=== PATIENT | female | born 1955 | race Two or more races ===

== ENCOUNTER 2018-11-06 14:48 | Emergency (ER) | payer OTHER ==
[~2018-11-06] VITALS: Ht 162.6 cm; Wt 77.1 kg
[2018-11-06] MEDS ORDERED: SYNTHROID100 MCG (14:58)
[2018-11-06] MEDS ORDERED: OMEPRAZOLE20 MG (15:00)
[2018-11-06] MEDS ORDERED: INTESTINEX680 M1 (15:00)
[2018-11-06] MEDS ORDERED: METRONIDAZOLE250 MG (15:00)
[2018-11-06] MEDS ORDERED: LEVSIN/SL0.125 MG (15:01)
== END 2018-11-06 20:54 | disposition home or self-care (01) ==
LOC: ER 14:48
DX: K52.9 Noninfective gastroenteritis and colitis, unspecified (principal); E86.0 Dehydration; R10.84 Generalized abdominal pain

== ENCOUNTER 2018-12-22 15:25 | Emergency (ER) | payer OTHER ==
[~2018-12-22] VITALS: Ht 162.6 cm; Wt 76.7 kg
[~2018-12-22 15:25] MED LIST: INTESTINEX680 M1; LEVSIN/SL0.125 MG; METRONIDAZOLE250 MG; OMEPRAZOLE20 MG; SYNTHROID100 MCG
== END 2018-12-22 19:08 | disposition home or self-care (01) ==
LOC: ER 15:25
DX: M54.2 Cervicalgia (principal); M25.552 Pain in left hip; M79.601 Pain in right arm; R10.84 Generalized abdominal pain

== ENCOUNTER 2019-01-06 10:47 | Emergency (ER) | payer OTHER ==
[~2019-01-06] VITALS: Ht 162.6 cm; Wt 72.6 kg
[2019-01-06] MEDS ORDERED: SYNTHROID88 MCG (11:39)
== END 2019-01-06 15:52 | disposition home or self-care (01) ==
LOC: ER 10:47
DX: K29.70 Gastritis, unspecified, without bleeding (principal)

== ENCOUNTER 2019-06-09 13:08 | Emergency (ER) | payer OTHER ==
[~2019-06-09] VITALS: Ht 160 cm; Wt 74.4 kg
[~2019-06-09 13:08] MED LIST changes: +SYNTHROID88 MCG
[2019-06-09] MEDS ORDERED: SYNTHROID100 MCG (13:27)
[2019-06-09] MEDS ORDERED: TUSNEL LIQUID178 ML PO (16:02)
== END 2019-06-09 16:17 | disposition home or self-care (01) ==
LOC: ER 13:08
DX: R53.81 Other malaise (principal)

== ENCOUNTER 2019-08-17 09:02 | Emergency (ER) | payer OTHER ==
[~2019-08-17] VITALS: Ht 162.6 cm; Wt 74.4 kg
[~2019-08-17 09:02] MED LIST changes: +TUSNEL LIQUID178 ML PO
[2019-08-17] MEDS ORDERED: BACTRIM DS TAB1 EACH PO (11:56)
== END 2019-08-17 12:27 | disposition home or self-care (01) ==
LOC: ER 09:02
DX: N39.0 Urinary tract infection, site not specified (principal)

== ENCOUNTER 2019-08-19 14:28 | Emergency (ER) | payer OTHER ==
[~2019-08-19] VITALS: Ht 160 cm; Wt 73.9 kg
[~2019-08-19 14:28] MED LIST changes: +BACTRIM DS TAB1 EACH PO
== END 2019-08-19 21:53 | disposition home or self-care (01) ==
LOC: ER 14:28
DX: K58.8 Other irritable bowel syndrome (principal)

== ENCOUNTER 2019-08-22 10:30 | Outpatient (CLI) | payer OTHER | END 2019-08-22 10:40 | disposition home or self-care (01) | LOC: LAB 10:30 | DX: N20.0 Calculus of kidney (principal) ==

== ENCOUNTER → 2019-08-24 07:26 | Outpatient (CLI) | payer OTHER | END | disposition home or self-care (01) | LOC: TOM 07:26 | DX: M12.88 Other specific arthropathies, not elsewhere classified, other specified site (principal); M46.47 Discitis, unspecified, lumbosacral region; R10.84 Generalized abdominal pain ==

== ENCOUNTER 2019-09-02 15:34 | Emergency (ER) | payer OTHER ==
[~2019-09-02] VITALS: Ht 160 cm; Wt 73.5 kg
[2019-09-02] MEDS ORDERED: DOLOGEN CAPLET1 EACH PO (18:43)
[2019-09-02] MEDS ORDERED: ZITHROMAX500 MG PO (18:43)
[2019-09-02] MEDS ORDERED: CLARITIN10 MG PO (18:43)
[2019-09-02] MEDS ORDERED: TUSNEL LIQUID178 ML PO (18:43)
== END 2019-09-02 18:48 | disposition home or self-care (01) ==
LOC: ER 15:34
DX: B33.8 Other specified viral diseases (principal); B96.0 Mycoplasma pneumoniae [M. pneumoniae] as the cause of diseases classified elsewhere

== ENCOUNTER 2019-12-30 13:21 | Emergency (ER) | payer OTHER ==
[~2019-12-30] VITALS: Ht 162.6 cm; Wt 74.4 kg
[~2019-12-30 13:21] MED LIST changes: +CLARITIN10 MG PO; +DOLOGEN CAPLET1 EACH PO; +ZITHROMAX500 MG PO
== END 2019-12-30 20:07 | disposition home or self-care (01) ==
LOC: ER 13:21
DX: M54.5 Low back pain (principal)

== ENCOUNTER → 2020-01-02 | Outpatient (CLI) | payer OTHER | END | disposition home or self-care (01) | LOC: MRI 11:02 | PROVIDERS: ATTEND Internal Medicine Endocrinology, Diabetes & Metabolism | DX: M81.8 Other osteoporosis without current pathological fracture (principal); M54.89 Other dorsalgia | CPT/HCPCS: 72148 ==

== ENCOUNTER 2021-05-14 14:50 | Emergency (ER) | payer OTHER ==
[~2021-05-14] VITALS: Ht 160 cm; Wt 74.8 kg
[2021-05-14] MEDS ORDERED: IBU800 MG PO (16:30)
== END 2021-05-14 16:52 | disposition home or self-care (01) ==
LOC: ER 14:50
DX: M54.50 Low back pain, unspecified (principal); M54.9 Dorsalgia, unspecified

== ENCOUNTER 2021-12-23 11:39 | Emergency (ER) | payer OTHER ==
[~2021-12-23] VITALS: Ht 162.6 cm; Wt 77.6 kg
[~2021-12-23 11:39] MED LIST changes: +IBU800 MG PO
== END 2021-12-23 15:57 | disposition home or self-care (01) ==
LOC: ER 11:39
DX: R00.2 Palpitations (principal); Z88.8 Allergy status to other drugs, medicaments and biological substances; Z20.822 Contact with and (suspected) exposure to COVID-19

== ENCOUNTER 2022-01-15 10:44 | Emergency (ER) | payer OTHER ==
[~2022-01-15] VITALS: Ht 160 cm; Wt 76.7 kg
== END 2022-01-15 15:34 | disposition home or self-care (01) ==
LOC: ER 10:44
DX: U07.1 COVID-19 (principal); J06.9 Acute upper respiratory infection, unspecified; R09.81 Nasal congestion; S80.02XA Contusion of left knee, initial encounter; W18.30XA Fall on same level, unspecified, initial encounter; Y93.9 Activity, unspecified; Y92.488 Other paved roadways as the place of occurrence of the external cause; Y99.9 Unspecified external cause status; Z88.8 Allergy status to other drugs, medicaments and biological substances

== ENCOUNTER 2022-11-03 11:26 | Emergency (ER) | payer OTHER ==
[~2022-11-03] VITALS: Ht 162.6 cm; Wt 74.4 kg
[2022-11-03] MEDS ORDERED: PREGABALIN50 MG (12:00)
== END 2022-11-03 17:18 | disposition home or self-care (01) ==
LOC: ER 11:26
DX: T50.991A Poisoning by other drugs, medicaments and biological substances, accidental (unintentional), initial encounter (principal); F41.8 Other specified anxiety disorders; Z88.8 Allergy status to other drugs, medicaments and biological substances; E03.9 Hypothyroidism, unspecified

== ENCOUNTER 2023-04-07 05:58 | Emergency (ER) | payer OTHER ==
[~2023-04-07] VITALS: Ht 160 cm; Wt 73.5 kg
[~2023-04-07 05:58] MED LIST changes: +PREGABALIN50 MG
[2023-04-07] MEDS ORDERED: SYNTHROID75 MCG PO (06:08)
== END 2023-04-07 07:54 | disposition home or self-care (01) ==
LOC: ER 05:59
DX: G24.3 Spasmodic torticollis (principal); Z88.8 Allergy status to other drugs, medicaments and biological substances
CPT/HCPCS: 96372; 99283; J1885

== ENCOUNTER 2023-09-09 08:35 | Emergency (ER) | payer OTHER ==
[~2023-09-09] VITALS: Ht 162.6 cm; Wt 74.4 kg
[~2023-09-09 08:35] MED LIST changes: +SYNTHROID75 MCG PO
== END 2023-09-09 10:50 | disposition home or self-care (01) ==
LOC: ER 08:35
DX: J06.9 Acute upper respiratory infection, unspecified (principal); K05.10 Chronic gingivitis, plaque induced; Z88.8 Allergy status to other drugs, medicaments and biological substances

== ENCOUNTER 2024-04-11 14:13 | Emergency (ER) | payer OTHER ==
[~2024-04-11] VITALS: Ht 162.6 cm; Wt 72.6 kg
== END 2024-04-11 20:21 | disposition home or self-care (01) ==
LOC: ER 14:13
DX: R00.2 Palpitations (principal); Z88.8 Allergy status to other drugs, medicaments and biological substances

== ENCOUNTER 2024-05-11 12:09 | Emergency (ER) | payer OTHER ==
[~2024-05-11] VITALS: Ht 160 cm; Wt 76.2 kg
[2024-05-11] MEDS ORDERED: LEVOTHYROXINE88 MC1 PO (13:02)
[2024-05-11] MEDS ORDERED: KETOROLAC TROMETHAMINE 60 MG VIAL IM ONE (15:00)
== END 2024-05-11 16:54 ==
LOC: ER 12:11
DX: M79.641 Pain in right hand (principal); M25.50 Pain in unspecified joint; E03.8 Other specified hypothyroidism; Z88.8 Allergy status to other drugs, medicaments and biological substances
CPT/HCPCS: 73130; 96372; 99283; J1885

== ENCOUNTER 2024-07-13 08:42 | Emergency (ER) | payer OTHER ==
[~2024-07-13] VITALS: Ht 162.6 cm; Wt 75.3 kg
[~2024-07-13 08:42] MED LIST changes: +LEVOTHYROXINE88 MC1 PO
[2024-07-13 08:48] VITALS: BP 143/74; O2SAT 97
[2024-07-13] MEDS ORDERED: ORPHENADRINE CITRATE 30 MG/ML AMPUL IM STA (10:24)
[2024-07-13] MEDS ORDERED: KETOROLAC TROMETHAMINE 30 MG VIAL IM STA (10:24)
[2024-07-13] MEDS ORDERED: KETOROLAC TROMETHAMINE 30 MG VIAL ONE (10:40)
[2024-07-13] MEDS ORDERED: ORPHENADRINE CITRATE 30 MG/ML AMPUL ONE (10:40)
== END 2024-07-13 10:56 | disposition home or self-care (01) ==
LOC: ER 08:42
DX: M54.2 Cervicalgia (principal); Z88.8 Allergy status to other drugs, medicaments and biological substances
CPT/HCPCS: 96372; 99282; J1885; J2360

== ENCOUNTER 2024-11-07 09:50 | Emergency (ER) | payer OTHER ==
[~2024-11-07] VITALS: Ht 165.1 cm; Wt 74.8 kg
[2024-11-07] MEDS ORDERED: SYNTHROID88 MCG PO (12:07)
[2024-11-07] MEDS ORDERED: KETOROLAC TROMETHAMINE 60 MG VIAL IM ONE (12:45)
[2024-11-07 17:55] LABS: BASO % 0.9 % (0.1-1.2); HEMATOCRIT 40.8 % (34.1-44.9); HEMOGLOBIN 13.7 g/dL (11.2-15.7); MEAN CORPUSCULAR HEMOGLOBIN 31.4 pg (25.6-32.2); MONO % 8.9 % (4.7-12.5); NEUT % 47.1 % (34.0-71.1); PLATELET COUNT 203 K/uL (163-369); RED BLOOD COUNT 4.37 M/uL (3.93-5.22)
[2024-11-07 17:56] LABS: EOS # 0.26 (0.04-0.54); LYMPH # 3.48 (1.18-3.74); MONO # 0.77 (0.24-0.82)
[2024-11-07 18:03] LABS: ALBUMIN 3.8 gm/dL (3.4-5.0); BILIRUBIN TOTAL 0.29 mg/dL (0.3-1.2); CALCIUM 8.8 mg/dL (8.5-10.1); CREATININE SERUM 0.7 mg/dL (0.55-1.02); GFR 83.46; GLOBULINA 3.8 G/DL (2.4-3.5); POTASSIUM 4.22 mEq/L (3.5-5.1); TOTAL PROTEIN 7.6 gm/dL (6.4-8.2)
[2024-11-07 19:59] LABS: ALBUMIN 3.8 gm/dL (3.4-5.0); BILIRUBIN TOTAL 0.25 mg/dL (0.3-1.2); CALCIUM 8.9 mg/dL (8.5-10.1); CREATININE SERUM 0.68 mg/dL (0.55-1.02); GFR 86.3; GLOBULINA 3.7 G/DL (2.4-3.5); POTASSIUM 4.18 mEq/L (3.5-5.1); TOTAL PROTEIN 7.5 gm/dL (6.4-8.2); TSH 11.8 uIU/mL (0.358-3.74)
== END 2024-11-07 22:28 | disposition home or self-care (01) ==
LOC: ER 09:50
PROVIDERS: General Practice
DX: M54.12 Radiculopathy, cervical region (principal); M54.2 Cervicalgia; R20.0 Anesthesia of skin; E03.8 Other specified hypothyroidism; Z88.8 Allergy status to other drugs, medicaments and biological substances
CPT/HCPCS: 36415; 70491; 72170; 73130; 96372; 99284; J1885; Q9965

== ENCOUNTER → 2024-11-26 | Emergency (ER) | payer OTHER ==
[~2024-11-26] VITALS: Ht 165.1 cm; Wt 76.2 kg
[~2024-11-26] MED LIST changes: +ORPHENADRINE CITRATE 30 MG/ML AMPUL IM STA; +ORPHENADRINE CITRATE 30 MG/ML AMPUL ONE; +SYNTHROID100 MCG PO; +SYNTHROID88 MCG PO
== END | disposition home or self-care (01) ==
LOC: ER 06:41
DX: M62.838 Other muscle spasm (principal); E03.9 Hypothyroidism, unspecified; Z88.8 Allergy status to other drugs, medicaments and biological substances
CPT/HCPCS: 96372; 99282; J2360

== ENCOUNTER 2025-01-15 07:34 | Emergency (ER) | payer OTHER ==
[~2025-01-15] VITALS: Ht 165.1 cm; Wt 77.1 kg
[~2025-01-15 07:34] MED LIST changes: -ORPHENADRINE CITRATE 30 MG/ML AMPUL IM STA; -ORPHENADRINE CITRATE 30 MG/ML AMPUL ONE
[2025-01-15] MEDS ORDERED: SYNTHROID112 MCG PO (07:42)
[2025-01-15] MEDS ORDERED: GUAIFENESIN 200 MG/10 ML BLIST.PACK PO ONE (08:30)
[2025-01-15] MEDS ORDERED: KETOROLAC TROMETHAMINE 30 MG VIAL IM ONE (08:30)
[2025-01-15] MEDS ORDERED: IPRATROPIUM BROMIDE 0.5 MG/2.5 ML AMPUL.NEB IH SCH (08:45)
[2025-01-15 09:16] LABS: BASO % 0.9 % (0.1-1.2); EOS # 0.15 (0.04-0.54); EOS % 2.0 % (0.7-7.0); LYMPH # 1.89 (1.18-3.74); LYMPH % 25.0 % (19.3-53.1); MEAN PLATELET VOLUME 11.80 fl (9.4-12.4); MONO # 0.81 (0.24-0.82); MONO % 10.7 % (4.7-12.5); NEUT # 4.64 (1.56-6.13); NEUT % 61.3 % (34.0-71.1); RED CELL DISTRIBUTION WIDTH 11.7 % (11.6-14.4)
[2025-01-15 09:32] LABS: COVID-19 AG POSITIVE (NEGATIVE)
== END 2025-01-15 11:47 | disposition home or self-care (01) ==
LOC: ER 07:41
PROVIDERS: General Practice
DX: U07.1 COVID-19 (principal); E03.8 Other specified hypothyroidism; Z88.8 Allergy status to other drugs, medicaments and biological substances
CPT/HCPCS: 36415; 94640; 96372; 99283; J1885

== ENCOUNTER → 2025-03-25 | Emergency (ER) | payer OTHER ==
[~2025-03-25] VITALS: Ht 165.1 cm; Wt 73.9 kg
[~2025-03-25] MED LIST changes: +0.9 % SODIUM CHLORIDE 1,000 ML IV SCH; +ACETAMINOPHEN 500 MG GEL..CAP PO ONE; +ASPIRIN 81 MG TAB.CHEW PO ONE; +ATORVASTATIN CALCIUM 40 MG TABLET PO ONE; +FAMOTIDINE/PF 20 MG in 0.9 % SODIUM CHLORIDE 8 ML IV PUSH ONE; +FAMOTIDINE/PF 20 MG/2 ML VIAL ONE; +ORPHENADRINE CITRATE 30 MG/ML AMPUL IM ONE; +ORPHENADRINE CITRATE 30 MG/ML AMPUL ONE; +SYNTHROID112 MCG PO
[2025-03-25 14:14] LABS: BASO % 0.7 % (0.1-1.2); EOS # 0.34 (0.04-0.54); EOS % 4.6 % (0.7-7.0); LYMPH # 2.71 (1.18-3.74); LYMPH % 36.4 % (19.3-53.1); MEAN PLATELET VOLUME 11.90 fl (9.4-12.4); MONO # 0.59 (0.24-0.82); MONO % 7.9 % (4.7-12.5); NEUT # 3.72 (1.56-6.13); NEUT % 50.0 % (34.0-71.1); RED CELL DISTRIBUTION WIDTH 11.3 % (11.6-14.4)
[2025-03-25 14:34] LABS: ALT/SGPT 33.0 U/L (12-78); AST/SGOT 21.0 U/L (15-37); BILIRUBIN TOTAL 0.27 mg/dL (0.3-1.2); BUN CREA RATIO 20.0 (7.0-25.0); CREATININE SERUM 0.69 mg/dL (0.55-1.02); GFR 84.86; GLOBULINA 4.0 G/DL (2.4-3.5); GLUCOSE FASTING 138.0 mg/dL (65-100); OSMOLALITY SERUM 284.0 MOSM/KG (275-295)
[2025-03-25 15:42] LABS: INR 0.99
[2025-03-25 16:40] LABS: URINE APPEARANCE Clear; URINE BILIRRUBIN Negative (NEGATIVE); URINE BLOOD Negative; URINE COLOR Yellow; URINE GLUCOSE Negative (NEGATIVE); URINE KETONE Negative (NEGATIVE); URINE LEUKOCYTE Trace; URINE NITRATE Negative; URINE PROTEIN Negative (NEGATIVE); URINE UROBILINOGEN 0.2 E.U./dl
[2025-03-25 16:43] LABS: URINE BACTERIA 145.1 uL (0.0-1933); URINE EPITHELIAL CELLS 13.3 uL (0.0-38.8); URINE WBC 11.0 uL (0.0-23.2)
[2025-03-25 16:51] LABS: URINE CAST 0.29 uL (0.0-1.40); URINE RBC 0.8 uL (0.0-20.8)
== END | disposition left against medical advice (07) ==
LOC: ER 11:24
PROVIDERS: General Practice; Student in an Organized Health Care Education/Training Program
DX: R42 Dizziness and giddiness (principal); E03.9 Hypothyroidism, unspecified; Z88.8 Allergy status to other drugs, medicaments and biological substances
CPT/HCPCS: 36415; 70450; 96365; 99283; J7030

== ENCOUNTER 2025-05-31 12:30 | Emergency (ER) | payer OTHER ==
[~2025-05-31] VITALS: Ht 162.6 cm; Wt 72.6 kg
[~2025-05-31 12:30] MED LIST changes: -0.9 % SODIUM CHLORIDE 1,000 ML IV SCH; -ACETAMINOPHEN 500 MG GEL..CAP PO ONE; -ASPIRIN 81 MG TAB.CHEW PO ONE; -ATORVASTATIN CALCIUM 40 MG TABLET PO ONE; -FAMOTIDINE/PF 20 MG in 0.9 % SODIUM CHLORIDE 8 ML IV PUSH ONE; -FAMOTIDINE/PF 20 MG/2 ML VIAL ONE; -ORPHENADRINE CITRATE 30 MG/ML AMPUL IM ONE; -ORPHENADRINE CITRATE 30 MG/ML AMPUL ONE
[2025-05-31 16:25] LABS: BASO % 0.5 % (0.1-1.2); EOS # 0.27 (0.04-0.54); EOS % 3.7 % (0.7-7.0); LYMPH # 3.18 (1.18-3.74); LYMPH % 43.1 % (19.3-53.1); MEAN PLATELET VOLUME 11.30 fl (9.4-12.4); MONO # 0.55 (0.24-0.82); MONO % 7.5 % (4.7-12.5); NEUT # 3.33 (1.56-6.13); NEUT % 45.1 % (34.0-71.1); RED CELL DISTRIBUTION WIDTH 11.1 % (11.6-14.4)
[2025-05-31 16:29] LABS: ERYTHROCYTE SEDIMENTATION RATE 19 mm/hr (0-30)
[2025-05-31 16:51] LABS: INR 0.99
[2025-05-31 17:07] LABS: ALT/SGPT 29 U/L (12-78); AST/SGOT 13 U/L (15-37); BILIRUBIN TOTAL 0.42 mg/dL (0.3-1.2); BUN CREA RATIO 24 (7.0-25.0); CREATININE SERUM 0.54 mg/dL (0.55-1.02); GFR 112.27; GLOBULINA 3.3 G/DL (2.4-3.5); GLUCOSE FASTING 87 mg/dL (65-100); OSMOLALITY SERUM 279 MOSM/KG (275-295)
[2025-05-31 17:20] LABS: COVID-19 AG NEGATIVE (NEGATIVE)
[2025-05-31 18:25] LABS: URINE APPEARANCE Clear; URINE BILIRRUBIN Negative (NEGATIVE); URINE BLOOD Negative; URINE COLOR Yellow; URINE GLUCOSE Negative (NEGATIVE); URINE KETONE Negative (NEGATIVE); URINE LEUKOCYTE Trace; URINE NITRATE Negative; URINE PROTEIN Negative (NEGATIVE); URINE UROBILINOGEN 0.2 E.U./dl
[2025-05-31 18:27] LABS: URINE BACTERIA 122.3 uL (0.0-1933); URINE EPITHELIAL CELLS 15.3 uL (0.0-38.8); URINE WBC 21.5 uL (0.0-23.2)
[2025-05-31 18:36] LABS: URINE CAST 0.14 uL (0.0-1.40); URINE RBC 1.1 uL (0.0-20.8)
[2025-05-31] MEDS ORDERED: NEURONTIN300 MG PO (18:59)
== END 2025-05-31 22:35 | disposition home or self-care (01) ==
LOC: ER 12:30
PROVIDERS: Physician Assistant Medical
DX: R42 Dizziness and giddiness (principal); R53.1 Weakness; S80.02XA Contusion of left knee, initial encounter; S80.01XA Contusion of right knee, initial encounter; W18.39XA Other fall on same level, initial encounter; Y93.89 Activity, other specified; Y92.231 Patient bathroom in hospital as the place of occurrence of the external cause; Y99.9 Unspecified external cause status; M54.89 Other dorsalgia; M25.552 Pain in left hip; M25.551 Pain in right hip; Z20.822 Contact with and (suspected) exposure to COVID-19; Z88.8 Allergy status to other drugs, medicaments and biological substances; E83.9 Disorder of mineral metabolism, unspecified